=== PATIENT | female | born 1955 | race Caucasian/White ===

== ENCOUNTER 2023-01-12 08:15 | Outpatient (CLI) | payer MEDICARE, BC, SELFPAY ==
--- NOTE | 2023-01-12 08:38 | W.ANESCHARGE ---
Anesthesia Charges Start Date/Time Anesthesia Start Date: 01/12/23 Anesthesia Start Time: 09:22 Stop Date/Time Anesthesia Stop Date: 01/12/23 Anesthesia Stop Time: 09:46
--- NOTE | 2023-01-12 09:48 | W.ANESCHARGE ---
Anesthesia Charges Start Date/Time Anesthesia Start Date: 01/12/23 Anesthesia Start Time: 09:22 Stop Date/Time Anesthesia Stop Date: 01/12/23 Anesthesia Stop Time: 09:46
== END 2023-01-12 08:16 | disposition home or self-care (01) ==
PROVIDERS: PCP Surgery; Visit Provider Internal Medicine Gastroenterology
DX: Z12.11 Encounter for screening for malignant neoplasm of colon (principal); K64.9 Unspecified hemorrhoids
CPT/HCPCS: 00811; 00812; 45378; J2405; J2704

== ENCOUNTER 2023-04-01 18:04 | Emergency (ER) | payer MEDICARE, BC, SELFPAY ==
[2023-04-01 18:09] VITALS: BP 152/93; PULSE 97; RESP 18; TEMP 35.8; O2SAT 99; BMI 26.8
--- NOTE | 2023-04-01 18:18 | ED.GENADULT ---
HPI - General Adult General Time Seen by Provider: 18:18 Date Seen: 04/01/23 Chief complaint: Lower Extremity Swelling Stated complaint: L ankle lump-golfball sized Time Seen by Provider: 04/01/23 18:12 History of Present Illness HPI narrative: 67 y/o who presents with left leg cramping and swelling around the left ankle. Last night had a ?charley horse? that last about 5 minutes. She has had these in the past but this was most severe. Subsequently today has had some pain of the lateral distal lower leg and noted an area of swelling on the anterior ankle. Mild tenderness but no pain with walking, no fever chills, no chest pain or shortness of breath. Related Data Home Medications Medication Instructions Recorded Confirmed atorvastatin 20 mg tablet 20 mg PO DAILY 04/01/23 04/01/23 metoprolol succinate 25 mg 25 mg PO DAILY 04/01/23 04/01/23 tablet,extended release 24 hr sacubitril 49 mg-valsartan 51 mg 1 tab PO BID 04/01/23 04/01/23 tablet (Entresto) Allergies Allergy/AdvReac Type Severity Reaction Status Date / Time NSAIDS (Non-Steroidal Allergy Verified 04/01/23 18:09 Anti-Inflamma Penicillins Allergy Verified 04/01/23 18:09 PFSH PFSH Social History Smoking Status: Never smoker How often do you have a drink containing alcohol: monthly or less AUDIT-C Alcohol total score: 1 Non-prescribed substance use: denies use service: No Exam Narrative: Exam Narrative: General: well nourished , NAD Head: Atraumatic and normocephalic ENT: External ears and external nose are normal Eyes: Conjunctiva clear, pupils are equal reactive, external ocular motions are intact Neck: Full spontaneous range of motion of the neck Lungs: No respiratory distress Musculoskeletal: Abrasion and mild tenderness overlying the distal fibula on the left. 1 cm mobile subcutaneous nodule along the anterior lateral ankle joint line. No pain with ankle movement, no redness or warmth. No calf tenderness or swelling. Neurologic: No gross focal neurologic deficits Skin: No rashes Psych: Mood and affect are appropriate Const: Vital Signs, click to edit/add: Vital Signs - 24 hr 04/01/23 18:09 Temperature 96.5 F L Pulse Rate [Pulse Oximeter] 97 Respiratory Rate 18 Blood Pressure [Ri ght Upper Arm] 152/93 H Pulse Oximetry 99 Oxygen Delivery Me thod Room Air Course Course ED Course: Patient seen examined, prior records reviewed. Patient presents today with severe calf cramp last night followed by ankle swelling today. She is concerned about a blood clot, clinically DVT is unlikely but ultrasound is ordered. There is a cystic structure along the joint line of the ankle which could be a synovial cyst, ultrasound will evaluate this as well. Reevaluation(s) Time of Reevaluation #1: 19:01 Reevaluation #1: Ultrasound does not demonstrate DVT, there is a small non cystic fluid collection in the area swelling. Patient stable for discharge, elevation, compression, and follow up as needed. Vital Signs Vital signs: Initial Vital Signs Temperature 96.5 F L 04/01/23 18:09 Temperature Source Temporal Artery Scan 04/01/23 18:09 Pulse Rate 97 04/01/23 18:09 Respiratory Rate 18 04/01/23 18:09 Blood Pressure 152/93 H 04/01/23 18:09 Blood Pressure Mean 112 H 04/01/23 18:09 Blood Pressure Position Sitting 04/01/23 18:09 Pulse Oximetry 99 04/01/23 18:09 Oxygen Delivery Method Room Air 04/01/23 18:09 Vital Signs Temperature 96.5 F L 04/01/23 18:09 Pulse Rate 97 04/01/23 18:09 Respiratory Rate 18 04/01/23 18:09 Blood Pressure 152/93 H 04/01/23 18:09 Pulse Oximetry 99 04/01/23 18:09 Oxygen Delivery Method Room Air 04/01/23 18:09 Temperature 96.5 F L 04/01/23 18:09 Pulse Rate 97 04/01/23 18:09 Respiratory Rate 18 04/01/23 18:09 Blood Pressure 152/93 H 04/01/23 18:09 Pulse Oximetry 99 04/01/23 18:09 Oxygen Delivery Method Room Air 04/01/23 18:09 Discharge Plan Discharge Clinical Impression: Ankle swelling, Calf pain Patient Disposition: Home, Self-Care Condition: Stable Instructions: Leg Cramps (ED) Additional Instructions: Scott wrap or other compressive device to the left ankle. Ice every 2-3 hours while awake for 15-20 minutes at a time over the next 24 hours. Follow-up with your primary care doctor in 5-7 days if needed. Activity Level: Activity as Tolerated Prescriptions: No Action atorvastatin 20 mg tablet 20 mg PO DAILY metoprolol succinate 25 mg tablet extended release 24 hr 25 mg PO DAILY Entresto 49-51 mg tablet 1 tab PO BID Follow Up/Referrals: Pavel Rod MD [Primary Care Provider] - Stand Alone Forms: [facility] Info Instructions
--- NOTE | 2023-04-01 18:30 | CRLHL7_ITS ---
For Patients: As a result of the Century Cures Act, medical imaging exams and procedure reports are released immediately into your electronic medical record. You may view this report before your referring provider. If you have questions, please contact your health care provider. INDICATION: Pain and swelling. TECHNIQUE: Ultrasound venous duplex lower left extremity. Compression venous exam was performed using caro-scale, color Doppler, and spectral Doppler analysis. Permanently recorded images are archived. COMPARISON: None. FINDINGS: Deep veins: Sonographic imaging demonstrates the left common femoral, deep femoral, superficial femoral, popliteal, posterior tibial, peroneal and the contralateral right common femoral veins to be fully compressible with normal color Doppler blood flow. Superficial veins: Greater saphenous vein is fully compressible. No popliteal cyst. Small, 2.0 x 0.3 x 1.8 cm, crescentic fluid collection without internal vascular flow or hyperemia about the left anterior ankle. IMPRESSION: No deep venous thrombosis in the evaluated veins of the left lower extremity. Small fluid collection about the anterior ankle, may represent edema or an evolving hematoma. Dictated by Michael Lamas MD @ 04/01/2023 7:34:44 PM (Electronically Signed)
--- OUTSIDE RECORDS SUMMARY | 2023-04-01 19:12 | XMS_ITS | Continuity of Care Document ---
Author Name Unknown Organization [facility] Address [address] [address] [place] [address] Phone Care Team Providers Care Car Designer Name Role Phone Ford Soares MD Unavailable Unavailable Advance Directives Directive Yes / No Effective Date File Name No Information Encounters Encounter Description Practice Location Reason(s) For Visit Diagnoses Date Provider Providers Copied on Encounter [facility], [address] [address], [place], [place], [id number], [place] tel:[phone] [facility] No Information Rodger Youngblood. [address] [facility] [facility] [address], [place], [place], [id number], [place]. tel:[phone] Family History Family Member Type Diagnosis Age At Onset No Information Payers Payer name Insurance type Covered green party ID Authoriza tion(s) No Information Social History Type Description Quantity Date Captured Comments Sex Female Smoking Status No Information Chief Complaint And Reason For Visit No Information Reason For Referral Reason For Referral No Information History Of Present Illness Encounter Date Complaint History Of Prese nt Illness No Information Functional Status Date Functional Assessmen t No Information Instructions Date Instruction Additional Infor mation No Information Assessments Type Assessment Date No Information Patient Care Teams Name Effective Dates (start - stop) Status Members No Information
== END 2023-04-01 19:18 | disposition home or self-care (01) ==
PROVIDERS: Emergency Provider Family Medicine
DX: M25.472 Effusion, left ankle (principal); M79.662 Pain in left lower leg
CPT/HCPCS: 93971; 99283; 99284

== ENCOUNTER 2023-09-22 12:46 | Emergency (ER) | payer MEDICARE, BC, SELFPAY ==
[2023-09-22 13:03] VITALS: BP 128/70; PULSE 88; RESP 18; TEMP 36.4; O2SAT 97; BMI 27.1
--- NOTE | 2023-09-22 13:15 | ED.GENADULT ---
HPI - General Adult General Time Seen by Provider: 13:15 Date Seen: 09/22/23 Chief complaint: Back Injury/Pain Stated complaint: Back and chest pain Time Seen by Provider: 09/22/23 12:48 Source: patient and RN notes reviewed Mode of arrival: ambulatory Limitations: no limitations History of Present Illness HPI narrative: This 68-year-old female is coming in to the ER for evaluation upon referral to the triage nurse she talked to with complaint of back pain and hoarseness. She has had a 7 year history of this intermittent upper thoracic back pain. It is there right now, is in the center of her upper thoracic back, by the end of the day will feel it radiating around both sides of her chest and feeling admits pressure. When it 1st started, she states she was checked out about 6 different times for cardiac issues, was not found to have any. She has subsequently been diagnosed with idiopathic cardiomyopathy, follows with Dr. Anglees at [facility]. She notes that her ejection fraction has improved from low 40s to 50s now. She does admit she is started to feel little short of breath with going up stairs at times. She does not have the sense of chest pressure right now just the back pain. There has been no associated cough or cold symptoms. She was found to have some pancreatic issues, put a couple stents in her pancreas and then were removed, this did not change her symptoms of her back. She had her gallbladder out about 2 and half weeks ago for dysfunctional gallbladder issues, this is not changed her back pain. She did review her symptoms with her surgeon, he thought that she should perhaps have an MRI of her thoracic spine, see if it was coming from her back. I did review with her that I do agree with that, we do not do MRIs out of the ER for this nature of complaints. She has appointment this Thursday to discuss this. She also notes over the last 6 days that she has lost her voice, really has worsened through the weekend. Each day she feels like it is worsening. She is having no difficulty swallowing, is not choking on anything. She may feel like her throat a little sore if she talks a lot but otherwise there is no pain in the throat. This recurrent voice hoarseness has come to light that it accompanies the back symptoms but the hoarseness is really only bend the last 6 months. She has not seen ENT. She does have a history of choking on a vitamin-C pill about 8-10 years ago, reportedly got Heimlich maneuver by a neighbor, the pill on lodged but went down into the respiratory tree per her report. She ended up being observed in an ICU overnight as the vitamin-C caused burning or irritation of her vocal cords. Related Data Home Medications Medication Instructions Recorded Confirmed atorvastatin 20 mg tablet 20 mg PO DAILY 04/01/23 09/22/23 metoprolol succinate 25 mg 25 mg PO DAILY 04/01/23 09/22/23 tablet,extended release 24 hr sacubitril 49 mg-valsartan 51 mg 1 tab PO BID 04/01/23 09/22/23 tablet (Entresto) spironolactone 25 mg tablet 25 mg PO DAILY 09/22/23 09/22/23 Allergies Allergy/AdvReac Type Severity Reaction Status Date / Time NSAIDS (Non-Steroidal Allergy Verified 09/22/23 13:12 Anti-Inflamma Penicillins Allergy Verified 09/22/23 13:12 Review of Systems Status of ROS: Reports: 6 or more systems reviewed and unremarkable except as noted in History and below [facility] Medical History (Updated 09/22/23 @ 16:12 by Ruth Ann Zelaya MD) Cardiomyopathy ?I42.9 - Cardiomyopathy, unspecified (ICD-10) Surgical History (Updated 09/22/23 @ 14:08 by Ruth Ann Zelaya MD) Status post cholecystectomy ?Z90.49 - Acquired absence of other specified parts of digestive tract (ICD-10) Social History Smoking Status: Never smoker How often do you have a drink containing alcohol: monthly or less AUDIT-C Alcohol total score: 1 Non-prescribed substance use: denies use service: No Exam Const: Vital Signs, click to edit/add: Vital Signs - 24 hr 09/22/23 13:03 09/22/23 13:32 09/22/23 15:17 Temperature 97.6 F Pulse Rate [Right Pulse Oximeter] 88 77 Respiratory Rate 18 18 Blood Pressure [Ri ght Upper Arm] 128/70 124/66 Pulse Oximetry 97 97 97 Oxygen Delivery Me thod Room Air Room Air This 68-year-old female is alert, interactive, no apparent distress. She definitely has voice hoarseness but is able speak in complete sentences. She has symmetrical facial function, sclera clear, pupils equal round reactive. Oropharynx with normal mucosa, palate elevates, tongue protrudes normally, mucosa is normal, dentition good repair. Posterior pharynx without any abnormalities. Neck is supple, no thyromegaly masses or nodules, no adenopathy. Lungs are clear, good air entry, no wheezing or crackles. CV regular rate and rhythm, no murmur, normal S1-S2, no S3-S4. Abdomen has barely perceptible scars that are already well healed. She still has some mild right upper quadrant tenderness which is not out of the ordinary for her recent cholecystectomy. She really has no significant concerning abdominal tenderness, no organomegaly or masses noted. Ambulatory into the ED of her own accord. Documenting provider has reviewed patient's vital signs: yes Course Course ED Course: Patient and I did spend some time discussing her symptoms. We did discuss imaging her chest with CT scan, she would like to proceed with this. Did discuss with her we could do reconstruction of the thoracic spine on CT imaging, she would really like to proceed with that. We will have her on monitoring here, obtain EKG, do full complement of labs. With imaging of her chest given that she had recent gallbladder surgery, will just do chest CT PE protocol. Her symptoms have been present intermittently for 7 years now, doubt that this is anything life-threatening but will proceed with imaging as discussed with patient. Reviewed with her that for her voice becoming hoarse, do suspect possible vocal cord issues given her history of the vitamin-C tablet choking episode. She will very likely need to see ENT outpatient, do not feel that this is emergent. Will consider cardiac issues, obtain EKG and troponin but do doubt acute ischemic disease, CHF or other emergent cardiac conditions. Reevaluation(s) Time of Reevaluation #1: 16:09 Reevaluation #1: Reviewed CTs of thoracic spine and chest. Did review the incidental findings and recommendations for follow-up renal ultrasound. She is to bring the CT reports to her clinic appointment on Thursday. She will follow-up with ENT tomorrow. Interestingly, her voice right now is improved, much less hoarse. Her friend that is with her agrees. Consultations Consultation #1: Reviewed with Dr. Sheffield, he will see patient tomorrow to visualize vocal cords. Time: 13:46 Vital Signs Vital signs: Initial Vital Signs Temperature 97.6 F 03/26/24 13:03 Temperature Source Temporal Artery Scan 09/22/23 13:03 Pulse Rate 88 09/22/23 13:03 Pulse Rhythm Regular 09/22/23 13:03 Respiratory Rate 18 09/22/23 13:03 Blood Pressure 128/70 09/22/23 13:03 Blood Pressure Mean 89 09/22/23 13:03 Blood Pressure Position Sitting 09/22/23 13:03 Pulse Oximetry 97 09/22/23 13:03 Oxygen Delivery Method Room Air 09/22/23 13:03 Vital Signs Temperature 97.6 F 09/22/23 13:03 Pulse Rate 88 09/22/23 13:03 Respiratory Rate 18 09/22/23 13:03 Blood Pressure 128/70 09/22/23 13:03 Pulse Oximetry 97 09/22/23 13:03 Oxygen Delivery Method Room Air 09/22/23 13:03 Temperature 97.6 F 09/22/23 13:03 Pulse Rate 77 09/22/23 15:17 Respiratory Rate 18 09/22/23 15:17 Blood Pressure 124/66 09/22/23 15:17 Pulse Oximetry 97 09/22/23 15:17 Oxygen Delivery Method Room Air 09/22/23 15:17 Medical Decision Making Lab Data Lab results reviewed: Yes I reviewed the patient's lab results Labs: Lab Results 09/22/23 Range/Units 13:50 WBC 7.69 (4.50-11.00) K/uL RBC 4.37 (4.00-5.20) m/uL Hgb 12.9 (12.0-16.0) gm/dL Hct 40.0 (33.0-51.0) % MCV 92 (80-100) fL MCH 30 (26-34) pg MCHC 32 (32-36) gm/dL RDW Coeff of Lily 12.1 (11.5-15.5) % Plt Count 297 (140-440) K/uL Neut % (Auto) 65.1 (42.0-72.0) % Lymph % (Auto) 24.8 (20-44) % [place] % (Auto) 5.5 (0.0-11.0) % Eos % (Auto) 4.2 (0.0-7.0) % Baso % (Auto) 0.3 (0.0-3.0) % Neut # (Auto) 5.01 (1.7-7.0) K/uL Lymph # (Auto) 1.91 (0.90-2.90) K/uL [place] # (Auto) 0.40 (0.00-0.90) K/UL Eos # (Auto) 0.32 (0.00-0.50) K/uL Baso # (Auto) 0.02 (0.00-0.30) K/uL Abs Immat Gran (auto) 0.01 (0.00-0.30) K/uL Imm/Tot Granulo (auto) 0.1 % VBG pH 7.383 (7.32-7.43) VBG pCO2 41 (40-50) mmHG VBG pO2 < 30.1 (25-47) mmHG VBG HCO3 24 (21-28) mmol/L Sodium 139 (135-149) mmol/L Potassium 4.8 (3.6-5.1) mmol/L Chloride 109 (96-114) mmol/L Carbon Dioxide 24 (20-32) mmol/L Anion Gap 6 L (7-15) mEq/L BUN 23 (7-30) mg/dL Creatinine 0.9 (0.5-1.5) mg/dL Estimated Creat Clear 47.79 Estimated GFR 71 ml/min Glucose 92 (60-115) mg/dL Lactate 0.7 (0.5-1.9) mmol/L Calcium 9.8 (8.4-10.6) mg/dL Total Bilirubin 0.6 (0.1-1.5) mg/dL AST 21 (12-35) U/L ALT 28 (4-35) U/L Alkaline Phosphatase 109 (40-150) U/L Troponin I < 0.01 L (0.01-0.04) ng/mL C-Reactive Protein < 0.5 L (0.5-1.0) mg/dL NT-Pro-B Natriuret Pep 69 pg/mL Total Protein 7.7 (6.0-8.3) g/dL Albumin 4.5 (3.3-5.0) g/dL Lipase 65 (23-300) U/L Imaging Data CT scan - chest: Attestation: I have reviewed the pertinent imaging results. Radiologist's impression: Patient: TONA RODRIGUEZ Facility:?[facility] Patient ID:?[id number] Site Patient ID:?[id number]. Site :?[id number] Study:?CT Chest PE STUDY-09/22/2023 3:25:47 PM Ordering Physician:LISY Final Report: INDICATION: Dyspnea. Chest pain. TECHNIQUE: Multiplanar CT pulmonary angiogram was performed after the administration of 95 mL of Isovue 370 intravenous contrast. COMPARISON: Chest radiographs 07/24/2018. FINDINGS: Lower neck: The visualized thyroid is unremarkable. Cardiovascular: Contrast opacification of the pulmonary arterial tree is adequate. Heart size is normal. Thoracic aorta and pulmonary artery are normal in caliber. Mild atherosclerotic calcifications of the aortic arch. No significant coronary arterial calcifications. No pulmonary embolus. Mediastinum and lymph nodes: Unremarkable. No pathologic mediastinal or hilar lymphadenopathy by size criteria. Lungs: No focal consolidation. Dependent atelectasis. Linear bandlike opacification of the lung bases bilaterally, likely subsegmental atelectasis and/or scarring. Airways: The trachea remains patent and midline. Mild diffuse peribronchial wall thickening. Pleura: No pleural effusions or pneumothorax Chest wall: Unremarkable. Bones: No acute osseous abnormalities. Mild degenerative changes of the thoracic spine. Upper abdomen: Numerous hepatic and renal hypodensities, poorly characterized on this nondedicated examination, may represent simple cysts. There is a lobulated hypodensity arising from the interpolar region of the left kidney, not within the field of view on the prior CT from 2011. Cholecystectomy. No reflux of contrast material into the IVC. Prominent renal pelvises bilaterally. IMPRESSION: 1. No pulmonary embolus. No CT evidence of right heart strain. 2. No acute intrathoracic pathology. 3. Numerous hypodensities within the hepatic and renal parenchyma, possibly simple cysts but poorly characterized on this examination. There is a lobulated simple fluid attenuating lesion arising from the interpolar region of the left kidney. Consider further evaluation with dedicated CT or ultrasound in a nonemergent, outpatient setting for improved characterization. Please note that all CT scans at this facility use dose modulation, iterative reconstruction, and/or weight-based dosing when appropriate to reduce radiation dose to as low as reasonably achievable. Dictated by Rojelio Banks MD @ 09/22/2023 3:51:13 PM (Electronic Signature) CT- Other: Attestation: I have reviewed the pertinent imaging results. Radiologist's impression: Patient: TONA RODRIGUEZ Facility:?[facility] Patient ID:?[id number] Site Patient ID:?[id number]. Site :?1955 Study:?CT Spine Thoracic WITH CONTRAST FROM PE STUDY-09/22/2023 3:27:06 PM Ordering Physician:LISY Final Report: INDICATION: Chest discomfort. Upper thoracic back pain COMPARISON: 08/17/2011. TECHNIQUE: CT of the thoracic spine reconstructed from concurrent CT of the chest from the same day. FINDINGS: Normal vertebral body and facet alignment. No fractures. No vertebral body loss of height. No spondylolisthesis. No fractures of the visualized posterior ribs. Mild thoracic spondylosis. No prominent disc protrusions or herniations. No spinal canal or neural foraminal narrowing at all levels. Slight dependent atelectasis. Lungs are otherwise clear. IMPRESSION: 1. Normal alignment. No fractures. 2. Mild thoracic spondylosis. 3. No spinal canal or neural foraminal narrowing at all levels. Please note that all CT scans at this facility use dose modulation, iterative reconstruction, and/or weight-based dosing when appropriate to reduce radiation dose to as low as reasonably achievable. Dictated by Archie Candelaria MD @ 09/22/2023 3:50:26 PM (Electronic Signature) ECG Data Attestation: I personally reviewed and interpreted this ECG as follows: (Normal sinus rhythm, 87 beats per minute. Left bundle branch block.) Prior ECG tracings: available for review (Note prior EKG documentation in her epic chart show left bundle branch block from 2019.) Discharge Plan Discharge Clinical Impression: Hoarseness Back pain, thoracic Qualifiers: Chronicity: chronic Back pain laterality: midline Qualified Code(s): M54.6 - Pain in thoracic spine Patient Disposition: Home, Self-Care Condition: Stable Instructions: Thoracic Pain (ED) Additional Instructions: You need to follow up tomorrow morning at the [facility] [place] to see Dr. Sheffield, he requests that you are there at 10:00 a.m.. Would come a few minutes early to check in. Please keep your follow-up in clinic with your primary care provider in bring the CT imaging reports. You will need further ultrasound imaging done or imaging as preferred by your provider for the incidental findings on the CT. Activity Level: Activity as Tolerated Prescriptions: No Action spironolactone 25 mg tablet 25 mg PO DAILY atorvastatin 20 mg tablet 20 mg PO DAILY metoprolol succinate 25 mg tablet extended release 24 hr 25 mg PO DAILY Entresto 49-51 mg tablet 1 tab PO BID Follow Up/Referrals: Provider,Not a Local [Primary Care Provider] - Stand Alone Forms: [facility] Info Instructions
[2023-09-22 13:32] VITALS: O2SAT 97
--- NOTE | 2023-09-22 13:32 | CT_ITS ---
Patient: TONA RODRIGUEZ Facility:?[facility] Patient ID:?[id number] Site Patient ID:?[id number]. Site :?1955 Study:?CT-Spine Thoracic WITH CONTRAST FROM PE STUDY-09/22/2023 3:27:06 PM Ordering Physician:LISY Final Report: INDICATION: Chest discomfort. Upper thoracic back pain COMPARISON: 08/17/2011. TECHNIQUE: CT of the thoracic spine reconstructed from concurrent CT of the chest from the same day. FINDINGS: Normal vertebral body and facet alignment. No fractures. No vertebral body loss of height. No spondylolisthesis. No fractures of the visualized posterior ribs. Mild thoracic spondylosis. No prominent disc protrusions or herniations. No spinal canal or neural foraminal narrowing at all levels. Slight dependent atelectasis. Lungs are otherwise clear. IMPRESSION: 1. Normal alignment. No fractures. 2. Mild thoracic spondylosis. 3. No spinal canal or neural foraminal narrowing at all levels. Please note that all CT scans at this facility use dose modulation, iterative reconstruction, and/or weight-based dosing when appropriate to reduce radiation dose to as low as reasonably achievable. Dictated by Archie Candelaria MD @ 09/22/2023 3:50:26 PM Signed by:?Archie Candelaria MD @09/22/2023 3:50:26 PM (Electronic Signature)
--- NOTE | 2023-09-22 13:32 | CT_ITS ---
Patient: TONA RODRIGUEZ Facility:?[facility] Patient ID:?[id number] Site Patient ID:?[id number]. Site :?[id number] Study:?CT-Chest PE STUDY-09/22/2023 3:25:47 PM Ordering Physician:LISY Final Report: INDICATION: Dyspnea. Chest pain. TECHNIQUE: Multiplanar CT pulmonary angiogram was performed after the administration of 95 mL of Isovue 370 intravenous contrast. COMPARISON: Chest radiographs 07/24/2018. FINDINGS: Lower neck: The visualized thyroid is unremarkable. Cardiovascular: Contrast opacification of the pulmonary arterial tree is adequate. Heart size is normal. Thoracic aorta and pulmonary artery are normal in caliber. Mild atherosclerotic calcifications of the aortic arch. No significant coronary arterial calcifications. No pulmonary embolus. Mediastinum and lymph nodes: Unremarkable. No pathologic mediastinal or hilar lymphadenopathy by size criteria. Lungs: No focal consolidation. Dependent atelectasis. Linear bandlike opacification of the lung bases bilaterally, likely subsegmental atelectasis and/or scarring. Airways: The trachea remains patent and midline. Mild diffuse peribronchial wall thickening. Pleura: No pleural effusions or pneumothorax Chest wall: Unremarkable. Bones: No acute osseous abnormalities. Mild degenerative changes of the thoracic spine. Upper abdomen: Numerous hepatic and renal hypodensities, poorly characterized on this nondedicated examination, may represent simple cysts. There is a lobulated hypodensity arising from the interpolar region of the left kidney, not within the field of view on the prior CT from 2011. Cholecystectomy. No reflux of contrast material into the IVC. Prominent renal pelvises bilaterally. IMPRESSION: 1. No pulmonary embolus. No CT evidence of right heart strain. 2. No acute intrathoracic pathology. 3. Numerous hypodensities within the hepatic and renal parenchyma, possibly simple cysts but poorly characterized on this examination. There is a lobulated simple fluid attenuating lesion arising from the interpolar region of the left kidney. Consider further evaluation with dedicated CT or ultrasound in a nonemergent, outpatient setting for improved characterization. Please note that all CT scans at this facility use dose modulation, iterative reconstruction, and/or weight-based dosing when appropriate to reduce radiation dose to as low as reasonably achievable. Dictated by Rojelio aBnks MD @ 09/22/2023 3:51:13 PM Signed by:?Rojelio Banks MD @09/22/2023 3:51:13 PM (Electronic Signature)
[2023-09-22 13:57] LABS: HCO3 VBG 24 mmol/L (21-28); PCO2 VBG 41 mmHG (40-50); PO2 VBG < 30.1 mmHG (25-47); pH VBG 7.383 (7.32-7.43)
[2023-09-22 14:00] LABS: Basophils Absolute Auto 0.02 K/uL (0.00-0.30); Basophils Percent Auto 0.3 % (0.0-3.0); Eosinophils Absolute Auto 0.32 K/uL (0.00-0.50); Eosinophils Percent Auto 4.2 % (0.0-7.0); Hemoglobin* 12.9 gm/dL (12.0-16.0); Immature Granulocytes Abs Auto 0.01 K/uL (0.00-0.30); Immature Granulocytes Pct Auto 0.1 %; Lymphocytes Absolute Auto 1.91 K/uL (0.90-2.90); Lymphocytes Percent Auto 24.8 % (20-44); Mean Corpuscular HGB Conc 32 gm/dL (32-36); Mean Corpuscular Hemoglobin 30 pg (26-34); Mean Corpuscular Volume 92 fL (80-100); Monocytes Percent Auto 5.5 % (0.0-11.0); Neutrophils Absolute Auto 5.01 K/uL (1.7-7.0); Neutrophils Percent Auto 65.1 % (42.0-72.0); Platelet Count* 297 K/uL (140-440); RDW Coefficient of Variation % 12.1 % (11.5-15.5); Red Blood Count 4.37 m/uL (4.00-5.20); White Blood Count* 7.69 K/uL (4.50-11.00)
[2023-09-22 14:04] LABS: Slide Review Reflex No
[2023-09-22 14:06] LABS: Lactate* 0.7 mmol/L (0.5-1.9)
[2023-09-22 14:26] LABS: Albumin* 4.5 g/dL (3.3-5.0); Chloride* 109 mmol/L (96-114); Potassium* 4.8 mmol/L (3.6-5.1); Sodium* 139 mmol/L (135-149)
[2023-09-22 14:29] LABS: Alanine Aminotransferase* 28 U/L (4-35); Alkaline Phosphatase* 109 U/L (40-150); Anion Gap 6 mEq/L (7-15); Aspartate Amino Transferase* 21 U/L (12-35); Bilirubin Total* 0.6 mg/dL (0.1-1.5); Blood Urea Nitrogen* 23 mg/dL (7-30); Carbon Dioxide* 24 mmol/L (20-32); Creatinine* 0.9 mg/dL (0.5-1.5); Est. Creatinine Clearance* 47.79; Estimated Glomerular Filt Rate 71 ml/min; Glucose* 92 mg/dL (60-115); Total Protein* 7.7 g/dL (6.0-8.3)
[2023-09-22 14:30] LABS: Calcium* 9.8 mg/dL (8.4-10.6); Lipase* 65 U/L (23-300)
[2023-09-22 14:35] LABS: C Reactive Protein* < 0.5 mg/dL (0.5-1.0)
[2023-09-22 14:48] LABS: NT Pro B Type NatriureticPept* 69 pg/mL; Troponin I* < 0.01 ng/mL (0.01-0.04)
[2023-09-22 15:17] VITALS: BP 124/66; PULSE 77; RESP 18; O2SAT 97
== END 2023-09-22 16:20 | disposition home or self-care (01) ==
PROVIDERS: Emergency Provider Family Medicine
DX: M54.6 Pain in thoracic spine (principal); R49.0 Dysphonia
CPT/HCPCS: 36415; 71275; 72128; 80053; 82803; 83605; 83690; 83880; 84484; 85025; 86140; 93005; 94761; 99284; 99285; Q9967